=== PATIENT | male | born 1940 | race Caucasian/White ===

== ENCOUNTER 2016-07-30 09:41 | Emergency (ER) ==
[2016-07-30 09:48] VITALS: BP 111/62; TEMP 97.8; BMI 24.6
[2016-07-30] MEDS ORDERED: TESSALON PERLES PO STA (10:13)
--- NOTE | 2016-07-30 10:26 | ED.PDOC ---
General ED Provider: Dr. ANT GUY JR Chief Complaint: Respiratory Complaint Stated Complaint: Frequent cough, watery eyes. Woke with eyes matted shut this AM. Sore throat. Cough clear to yellow productive. Difficult to sleep.[End]4 days 97.8 89 20 94% 111/62 9/10 Cough drops, Robitussin, Time Seen by Physician: 10:12 Mode of Arrival: Walk-In Information Source: Patient Exam Limitations: No limitations Primary Care Provider: LITZY KUNZ Nursing and Triage Documentation Reviewed and Agree: No Review of Systems - Review Of Systems Constitutional: Reports: Malaise Respiratory: Reports: Cough Cardiac: Reports: No symptoms GI: Reports: No symptoms : Reports: No symptoms Musculoskeletal: Reports: No symptoms Skin: Reports: No symptoms Neurological: Reports: No symptoms Endocrine: Reports: No symptoms Hematologic/Lymphatic: Reports: No symptoms All Other Systems: Other Past Medical History - Past Medical History Previously Healthy: No Endocrine: Reports: Hypothyroid Cardiovascular: Reports: Hypertension Respiratory: Reports: None Hematological: Reports: None Gastrointestinal: Reports: None, GERD, Gallstones Genitourinary: Reports: None Neuro/Psych: Reports: None Musculoskeletal: Reports: None Cancer: Reports: None - Surgical History General Surgical History: Reports: None, Cholecystectomy - Family History Family History: Reports: None, Other (daughter with [employer] teaches daycare, daughter in law with illness and two grandchildren with urti symptoms and sore throats) - Social History Smoking Status: Never smoker Hx Substance Use: No Alcohol Screening: None Physical Exam - Physical Exam Appearance: Well-appearing, Obese Pain Distress: Mild Eyes: LEV, EOMI, Conjunctiva clear ENT: Ears normal, Nose normal, Oropharynx normal Neck: Supple Respiratory: Rhonchi Cardiovascular: RRR, Pulses normal, No rub, No murmur GI/: Soft, Nontender, No masses, Bowel sounds normal, No Organomegaly Musculoskeletal: Normal strength, ROM intact, No edema, No calf tenderness Skin: Warm, Dry, Normal color Neurological: Sensation intact, Motor intact, Reflexes intact, Cranial nerves intact, Alert, Oriented Psychiatric: Affect appropriate, Mood appropriate Interpretation - Radiology Interpretation Radiology Interpretation By: Radiologist Radiology Results: Negative Exam Interpreted: CXR Critical Care Note - Critical Care Note Total Time (mins): 0 Course - Course Orders, Labs, Meds: Lab Review 07/30/16 10:45 Influenza A (Rapid) Negative Influenza B (Rapid) Negative Orders Category Date Time Status MOLECULAR GROUP A STREP Stat LAB 07/30/16 10:45 Results RAPID FLU A/B Stat LAB 07/30/16 10:45 Completed STREP SCREEN Stat LAB 07/30/16 10:45 Results Benzonatate [Tessalon Perles] MEDS 07/30/16 10:13 Discontinued 200 mg PO ONCE STA CHEST, 2 VIEWS PA & LAT Stat RADS 07/30/16 10:12 Completed Medications Discontinued Medications Generic Name Dose Route Start Last Admin Trade Name Freq PRN Reason Stop Dose Admin Benzonatate 200 mg 07/30/16 10:13 07/30/16 10:38 Tessalon Perles PO 07/30/16 10:14 200 mg ONCE STA Administration Vital Signs: Temp Pulse Resp BP Pulse Ox 07/30/16 09:43 97.8 F 89 20 111/62 94 L Departure - Departure Time of Disposition: 11:57 Disposition: HOME SELF-CARE Discharge Problem: Pneumonia, Pneumonitis Instructions: Community Acquired Pneumonia (ED), Pneumonitis (ED) Condition: Good Pt referred to PMD for follow-up: Yes Additional Instructions: return if fever over 101.0 or if worsening Solumedrol given by injection Tesslon Perles or Robitussin AC for cough Bactrim antibiotic until gone Please follow-up with Dr. Kunz in 1-5 days. Prescriptions: Sulfamethoxazole/Trimethoprim [Bactrim Ds Tablet] 1 tab PO Q12HR #20 tablet Benzonatate [Tessalon Perles] 200 mg PO TID PRN #20 capsule PRN Reason: Cough Guaifenesin/Codeine Phosphate [Robitussin AC Syrup] 10 ml PO Q6H PRN #240 ml PRN Reason: Cough Allergies/Adverse Reactions: Allergies No Known Allergies Allergy (Verified 07/30/16 09:49) Home Medications: Ambulatory Orders Alprazolam 0.5 mg PO BID PRN 09/07/13 Aspirin [Ecotrin] 81 mg PO DAILY 09/07/13 Esomeprazole Magnesium [Nexium] 40 mg PO DAILY 09/07/13 Hydrocodone Bit/Acetaminophen [Lortab 5-500] 1 tab PO BID PRN 09/07/13 Levothyroxine Sodium [Synthroid] 75 mcg PO QDAC 09/07/13 Losartan/Hydrochlorothiazide [Hyzaar 50-12.5 Tablet] 0.5 tab PO DAILY 09/07/13 Amlodipine Besylate 5 mg PO DAILY 09/08/13 Ascorbic Acid [Vitamin C] 1,000 mg PO DAILY 09/08/13 Benzonatate [Tessalon Perles] 200 mg PO TID PRN #20 capsule 07/30/16 Guaifenesin/Codeine Phosphate [Robitussin AC Syrup] 10 ml PO Q6H PRN #240 ml 09/14 Sulfamethoxazole/Trimethoprim [Bactrim Ds Tablet] 1 tab PO Q12HR #20 tablet 09/14
[2016-07-30 12:00] LABS: FLU INTERNAL QC INTERNAL QC VALID; RAPID FLU A NEGATIVE (NEGATIVE); RAPID FLU B NEGATIVE (NEGATIVE)
--- NOTE | 2016-07-30 13:38 | DI ---
EXAM: Chest two views HISTORY: Cough COMPARISON: 09/07/2014 TECHNIQUE: Two views of the chest were performed FINDINGS: The lungs are clear. There is no pleural effusion or pneumothorax. The heart is normal in size. The mediastinal contour is normal. There are no acute abnormalities of the bones. IMPRESSION: No acute cardiopulmonary process.
== END 2016-07-30 12:12 | disposition home or self-care (01) ==
LOC: ED 09:41
DX: J18.9 Pneumonia, unspecified organism (principal); Z79.899 Other long term (current) drug therapy
CPT/HCPCS: 87651; 87804; 87880; 99282

== ENCOUNTER → 2017-07-30 | Outpatient (POV) | LOC: OUTPT 00:01 | PROVIDERS: ATTEND Otolaryngology | DX: H91.90 Unspecified hearing loss, unspecified ear (principal) | CPT/HCPCS: 92557; 92567 ==

== ENCOUNTER 2018-01-20 06:29 | Outpatient (CLI) ==
--- NOTE | 2018-01-20 10:28 | NM ---
Cardiac Stress Test HISTORY: Dilated cardiomyopathy. COMPARISON: 09/19/2012. TECHNIQUE: Resting: The patient was injected with 3.6 mCi of 99m technetium Sestamibi (Cardiolite) intravenousl y after which a "resting" SPECT study of the heart was performed. Stress: The patient was stressed using a Amador protocol and at the appropriate time injected with 30 .8 mCi of 99m technetium Sestamibi (Cardiolite) after which a "stress" SPECT study of the heart was p erformed. Gated images of the heart were also obtained to assess wall motion and calculate ejection f raction. For details of the stress protocol employed, reference is made to the separate report of e performing physician. FINDINGS: The stress perfusion images demonstrate a generally uniform distribution of activity in th e left ventricular myocardium. The resting perfusion images demonstrate no evidence of significant r edistribution/ischemia. The left ventricular ejection fraction (LVEF) is 45 %. The previous ejection fraction was 54%. IMPRESSION: 1. Left ventricular myocardial perfusion is within normal limits. 2. The left ventricular ejection fraction (LVEF) is 45 %. The previous ejection fraction was 54%.
--- NOTE | 2018-01-22 10:28 | STECHOSEST ---
Date of Test: 01/20/18 Ordering Physician: DR. LITZY KUNZ Occupation: RETIRED Reason for Exam: SOB, DILATED CARDIOMYOPATHY, HTN Height: 69" Weight: 170 LBS Current Medications: AMLODIPINE, ALPRAZOLAM, ASA, ATORVASTATIN, ESOMEPRAZOLE, LEVOTHYROXINE, LOSARTAN, TAMSULOSIN Target Heart Rate: 120/142 Resting EKG: SINUS RHYTHM/ NO ACUTE CHANGES S-T SEGMENT STAGE MPH/GRADE HEART RATE BPM BLOOD PRESSURE mmhg RHYTHM +/- ELEVATION DEPRESSION SYMPTOMS,COMMENTS At Rest 44 112/58 SR X NONE 1 1.7/10% 105 120/80 SR X NONE 2 2.5/12% 3 3.4/14% 4 4.2/16% 5 5.0/18% Immediately after 118 SR X FATIGUE Minutes Post Exercise 4:00 50 110/60 SR X NO COMMENTS Minutes Post Exercise Total Time: 4:31 Maximum Heart Rate Reached: 118 Reason for Termination: FATIGUE 98% Oxygen saturation on room air with exercises Mets 7.0 INTERPRETATION 1. NO EVIDENCE OF ISCHEMIA BY ST-T WAVE 2. NO CHEST PAIN OR CHEST DISCOMFORT 3. NO ARRHYTHMIAS 4. BLOOD PRESSURE RESPONSE: NORMAL NORMAL LEFT VENTRICULAR CONTRACTILITY--RESTING AND POST EXERCISE MTDD
--- NOTE | 2018-01-22 10:33 | ECHOSTRESS ---
Date of Exam: 01/20/18 Ordering Physician: DR. LITZY KUNZ Reason for Echo: SOB, DILATED CARDIOMYOPATHY, HTN, STRESS TEST--NO ISCHEMIA M-Mode Normal Adult Results LV Dimensions Normal Adult Results AoV Opening excursions >1.6 LVEDD-base- 3.5-5.8 Ao root dimensions 2.0-3.7 LVESD-base- 3.1-4.6 L. Atrium dimensions 1.9-3.8 Post. Wall thickness 0.8-1.1 IV septum (thickness) 0.7-1.2 Post. Wall excursion 0.72-1.3 Septal motion Systolic motion R. Ventricular cavity 1.5-2.0 LVEF 60% Paradoxical septal wall motion 2-D: HYPOKINETIC LEFT VENTRICLE AT REST WITH IMPROVED LEFT VENTRICULAR CONTRACTILITY WITH EXERCISE M-MODE: MV: AV: TV: PV: CHAMBER SIZE: WALL MOTION: HYPOKINETIC LEFT VENTRICLE AT REST WITH IMPROVED LEFT VENTRICULAR CONTRACTILITY WITH EXERCISE PERICARDIUM: INTERPRETATION: 1. HYPOKINETIC LEFT VENTRICLE AT REST WITH IMPROVED LEFT VENTRICULAR CONTRACTILITY WITH EXERCISE MTDD
--- NOTE | 2018-01-22 10:40 | ECHO2D ---
Date of Exam: 01/20/18 Ordering Physician: DR. LITZY KUNZ Room #: OP Reason for Echo: SOB, DILATED CARDIOMYOPATHY, HTN M-Mode Normal Adult Results LV Dimensions Normal Adult Results AoV Opening excursions >1.6 >1.6 LVEDD-base- 3.5-5.8 5.7 Ao root dimensions 2.0-3.7 4.3 LVESD-base- 3.1-4.6 L. Atrium dimensions 1.9-3.8 4.5 Post. Wall thickness 0.8-1.1 1.1 IV septum (thickness) 0.7-1.2 1.2. Post. Wall excursion 0.72-1.3 0.7 Septal motion 0.6 Systolic motion R. Ventricular cavity 1.5-2.0 NORMAL LVEF 60% 42% Paradoxical septal wall motion NORMAL 2-D : HYPOKINETIC LEFT VENTRICLE--ENLARGED AORTIC ROOT--ENLARGED LEFT ATRIAL AND LEFT VENTRICLE CAVITIES--NO EFFUSION, NO THROMBUS M-MODE: MV: NORMAL AV: CALCIFIC AORTIC VALVE--MAYBE MILD AORTIC STENOSIS TV: NORMAL PV: CHAMBER SIZE: ENLARGED LEFT ATRIAL AND LEFT VENTRICLE CAVITIES WALL MOTION: HYPOKINETIC LEFT VENTRICLE PERICARDIUM: NORMAL INTERPRETATION: 1. LEFT VENTRICULAR HYPERTROPHY WITH ENLARGED LEFT ATRIAL CAVITY 2. CALCIFIC AORTIC VALVES WITH MAYBE MILD AORTIC STENOSIS 3. ENLARGED LEFT VENTRICLE CAVITY--BORDERLINE 4. DILATED AORTIC ROOT--BORDERLINE FOR AGE 4. HYPOKINETIC LEFT VENTRICLE WITH EJECTION FRACTION 42% MTDD
== END 2018-01-20 06:30 | disposition home or self-care (01) ==
LOC: CAR 06:29
PROVIDERS: ATTEND Internal Medicine
DX: R06.02 Shortness of breath (principal); I10 Essential (primary) hypertension; I42.0 Dilated cardiomyopathy
CPT/HCPCS: 93005; 93010; 93017; 93018

== ENCOUNTER 2018-05-14 10:06 | Outpatient (CLI) ==
--- NOTE | 2018-05-14 14:44 | US ---
EXAM: Ultrasound bilateral carotid duplex. HISTORY: Dizziness. COMPARISON: None available. TECHNIQUE: A duplex Doppler study was performed consisting of integrated two dimensional (2D) real-t lui imaging color flow Doppler and Doppler spectral analysis utilizing linear array probes. FINDINGS: Please note that estimates of internal carotid artery stenoses are based upon NASCET crite larry. Right carotid: Calcified plaquing without 50% or greater stenosis. Peak systolic velocity measureme nt in the right internal carotid artery is 0.6 meters per second. Right internal to common carotid a rtery peak systolic velocity ratio measures 1.0. End diastolic velocity measurement in the right int ernal carotid artery is 0.2 meters per second. Flow in the right vertebral artery is antegrade. Left carotid: Calcified plaquing without 50% or greater stenosis. Peak systolic velocity measuremen t in the left internal carotid artery is 0.5 meters per second. Left internal to common carotid corrine ry peak systolic velocity ratio measures 1.0. End diastolic velocity measurement in the left interna l carotid artery measures 0.2 meters per second. Flow in the left vertebral artery is antegrade. IMPRESSION: 1. No evidence for 50% or greater stenosis in the right or left internal carotid artery. 2. Antegrade flow in both vertebral arteries.
== END 2018-05-14 10:07 | disposition home or self-care (01) ==
LOC: RAD 10:06
PROVIDERS: ATTEND Internal Medicine
DX: R42 Dizziness and giddiness (principal)

== ENCOUNTER 2018-10-01 06:40 | Outpatient (CLI) ==
--- NOTE | 2018-10-01 09:23 | DI ---
EXAM: PA and lateral views of the chest HISTORY: Shortness of breath COMPARISON: Chest x-ray 07/30/2016 and multiple priors including CT chest 05/09/09 FINDINGS: The cardiomediastinal silhouette is normal. There is no pneumothorax or pleural effusion. There is no consolidation, nodule or mass. The osseous structures demonstrate multilevel degenerat татьяна disease. IMPRESSION: No acute cardiopulmonary process
--- NOTE | 2018-10-01 10:05 | STECHESEMD ---
Date of Test: 10/01/18 Ordering Physician: DR. LITZY KUNZ Occupation : RETIRED Reason for Exam: SOB, CHEST DISCOMFORT Smoking History: EX SMOKER Height: 68" Weight: 170 LBS Current Medications: LEVOTHYROXINE, TAMSULOSIN, AMLODIPINE, ALPRAZOLAM, ASA, LOSARTAN, ATORVASTATIN, HYDROCODONE, ESOMEPRAZOLE Resting EKG: SINUS RHYTHM/ BRADYCARDIA Target Heart Rate: 119/141 S-T SEGMENT STAGE MPH/GRADE HEART RATE BPM BLOOD PRESSURE mmhg RHYTHM +/- ELEVATION DEPRESSION SYMPTOMS At Rest 45 BPM 132/80 MMHG SR X NONE 1 1.7/0% 53 BPM 120/60 MMHG SR X NONE 2 1.7/5% 60 BPM 132/60 MMHG SR X NONE 3 1.7/10% 4 2.5/12% 5 3.4/14% Immediately after 70 BPM SR X FATIGUE Minutes Post Exercise 4:00 78 BPM 138/60 MMHG SR Minutes Post Exercise DURATION OF EXERCISE: 10:00 MAXIMUM HEART RATE REACHED: 78 BPM REASON FOR TERMINATION: FATIGUE 97% OXYGEN SATURATION WITH EXERCISE ON ROOM AIR METS 7.0 INTERPRETATION: 1. INCONCLUSIVE FOR ISCHEMIC ST-T WAVE CHANGES HE DID NOT REACH TARGET HEART RATE 2. NO EVIDENCE OF ISCHEMIA FROM HEART RATE 45 BPM TO 78 BPM WITH EXERCISE 3. WITH EXERCISE 2ND DEGREE MOBITZ TYPE 1 BLOCK NOTED INITIALLY AND AT THE HEIGHT OF EXERCISE 4. FEW PVC'S ISOLATED WITH EXERCISE 5. CLAUDICATION TYPE SYMPTOMS AT THE END OF EXERCISE 6. BLOOD PRESSURE RESPONSE: NORMAL NORMAL LEFT VENTRICULAR CONTRACTILITY--RESTING AND POST EXERCISE MTDD
--- NOTE | 2018-10-01 10:09 | NM ---
Cardiac Stress Test HISTORY: Chest pain. COMPARISON: None of this type. TECHNIQUE: Resting: The patient was injected with 3.5 mCi of thallium 201 chloride intravenously after which a "resting" SPECT study of the heart was performed. Stress: The patient was stressed using a Amador protocol and at the appropriate time injected with 25 mCi of 99m technetium Sestamibi (Cardiolite) after which a "stress" SPECT study of the heart was per formed. Gated images of the heart were also obtained to assess wall motion and calculate ejection fr action. For details of the stress protocol employed, reference is made to the separate report of the performing physician. FINDINGS: The stress perfusion images demonstrate a generally uniform distribution of activity in th e left ventricular myocardium. The resting perfusion images demonstrate no evidence of significant r edistribution/ischemia. The left ventricular ejection fraction (LVEF) is 52 %. IMPRESSION: 1. Left ventricular myocardial perfusion is within normal limits. 2. The left ventricular ejection fraction (LVEF) is 52 %.
--- NOTE | 2018-10-02 14:45 | ECHOSTRESS ---
Date of Exam: 10/01/2018 Ordering Physician: DR. KUNZ Reason for Echo: SHORTNESS OF BREATH, EXERTIONAL CHEST PAIN, STRESS TEST = INCONCLUSIVE M-Mode Normal Adult Results LV Dimensions Normal Adult Results AoV Opening excursions >1.6 LVEDD-base- 3.5-5.8 Ao root dimensions 2.0-3.7 LVESD-base- 3.1-4.6 L. Atrium dimensions 1.9-3.8 Post. Wall thickness 0.8-1.1 IV septum (thickness) 0.7-1.2 Post. Wall excursion 0.72-1.3 Septal motion Systolic motion R. Ventricular cavity 1.5-2.0 LVEF 60% Paradoxical septal wall motion 2-D: NORMAL LEFT VENTRICULAR CONTRACTILITY RESTING AND POST EXERCISE M-MODE: MV: AV: TV: PV: CHAMBER SIZE: WALL MOTION: NORMAL LEFT VENTRICULAR CONTRACTILITY RESTING AND POST EXERCISE PERICARDIUM: INTERPRETATION: 1. NORMAL LEFT VENTRICULAR CONTRACTILITY RESTING AND POST EXERCISE MTDD
--- NOTE | 2018-10-02 14:49 | ECHO2D ---
Date of Exam: 10/01/2018 Ordering Physician: DR. KUNZ Room #: OP Reason for Echo: SHORTNESS OF BREATH M-Mode Normal Adult Results LV Dimensions Normal Adult Results AoV Opening excursions >1.6 >1.6 LVEDD-base- 3.5-5.8 4.0 Ao root dimensions 2.0-3.7 2.9 LVESD-base- 3.1-4.6 L. Atrium dimensions 1.9-3.8 3.9 Post. Wall thickness 0.8-1.1 1.1 IV septum (thickness) 0.7-1.2 0.9 Post. Wall excursion 0.72-1.3 NORMAL Septal motion NORMAL Systolic motion R. Ventricular cavity 1.5-2.0 NORMAL LVEF 60% 61% Paradoxical septal wall motion NORMAL 2-D : 2-D M Mode Echocardiogram was performed using apical four chamber and left parasternal long and short axis views. Mitral, tricuspid and aortic valves appear to be normal. Contractility of the left ventricle seems to be normal, so is the cavity size. Left atrial cavity size and aortic root appear to be normal. There is no pericardial effusion. There is no thrombus noted in the left ventricular or left aortic cavity. No mitral valve prolapse noted. M-MODE: MV: NORMAL AV: NORMAL TV: NORMAL PV: CHAMBER SIZE: NORMAL WALL MOTION: NORMAL PERICARDIUM: NORMAL INTERPRETATION: 1. NORMAL 2D M MODE ECHOCARDIOGRAM MTDD
--- NOTE | 2018-10-03 15:04 | HOLTER ---
PATIENT INFORMATION AND COMMENTS Attending Physician: DR. KUNZ Indications: BRADYCARDIA __ Patient Medications: LEVOTHYROXINE, TAMSULOSIN, AMLODIPINE, BESYLATE, ALPRAZOLAM, ASPIRIN, LOSARTAN POT/HCTZ, ATORVASTATIN, HYDROCODONE APAP __ Pre-procedure Summary: Protocol: Standard Heart Rate Started: 10/01/18 AT 09 Minimum: 33BPM AT 0640 Weight: 170 Ended: 10/02/18 AT 0922 Maximum: 180BPM AT 1254 Height: 69" Duration: 24 HOURS Average: 48BPM _ INTERPRETATIONS/OBSERVATIONS: 1. BASIC RHYTHM SINUS RATE 33 TO 100BPM AVERAGE OF 48 BPM 2. INFREQUENT PREMATURE ATRIAL CONTRACTIONS AND PREMATURE VENTRICULAR CONTRACTIONS 3. ONE RUN OF 8 BEAT VENTRICULAR TACHYCARDIA RATE OF 120 BPM (WIDE COMPLEX) 4. DURING EARLY AM HOURS 2ND DEGREE ATRIOVENTRICULAR BLOCK LIKELY MOBITZ TYPE 1 NOTED WITH RATE OF 34 BPM 5. ACTIVITY LOG NOT AVAILABLE MTDD
== END 2018-10-01 06:41 | disposition home or self-care (01) ==
LOC: CAR 06:40
PROVIDERS: ATTEND Internal Medicine
DX: R00.1 Bradycardia, unspecified (principal); R06.02 Shortness of breath
CPT/HCPCS: 93227

== ENCOUNTER 2018-10-03 08:08 | Outpatient (CLI) ==
--- NOTE | 2018-10-03 09:06 | US ---
EXAM: ULTRASOUND ABDOMEN LIMITED HISTORY: Elevated liver enzymes FINDINGS: Ultrasound abdomen, limited. Carter-scale ultrasound and color Doppler was performed. Live r size was measured at 12 cm, within normal limits. Liver parenchyma demonstrated diffuse increased sound attenuation which may represent steatosis. No focal hepatic lesion or evidence of intrahepatic biliary dilatation was identified. The main portal vein is patent and hepatopedal. Gallbladder has been removed. The common bile duct diameter is normal at 0.31 cm. The visualized pa ncreas was within normal limits. Survey of the right kidney revealed no hydronephrosis. IMPRESSION: 1. Probable fatty liver. 2. Post cholecystectomy state with normal common bile duct diameter.
== END 2018-10-03 08:09 | disposition home or self-care (01) ==
LOC: RAD 08:08
PROVIDERS: ATTEND Internal Medicine
DX: R74.0 Nonspecific elevation of levels of transaminase and lactic acid dehydrogenase [LDH] (principal)